=== PATIENT | male | born 1990 | race Caucasian/White ===

== ENCOUNTER 2023-06-02 09:48 | Inpatient (IN) ==
--- OUTSIDE RECORDS SUMMARY | 2023-06-02 09:52 | External Medical Summary | Summary of Care ---
Author Name Unknown Organization [facility] Address [address] [facility] [address] Phone [phone] Care Team Providers Care Armature Bander Name Role Phone Therese Hathaway MD Primary Care Provider [phone] Reason for Visit * Reason Onset Date Comments Appointment 04/25/2023 Encounter Details Date Type Department Care Team (Late st Contact Info) Description 04/25/2023 [facility]phone [facility] [address] [place] [address] Ksenia Ordaz PA-C [address] [place] [id number] Appointment Allergies Active Allergy Reactions Criticality Noted Date Comments Penicillins Rash High 09/12/2022 documented as of this encounter (statuses as of 04/25/2023) Medications Medication Sig Dispensed Refills Start Date End Date Status Sertraline HCl 50 MG Oral Tablet (Zoloft) Take 1 Tablet by mouth in the morning. 90 Tablet 1 01/13/2023 Active Azithromycin 250 MG Oral Tablet (Zithromax Z-Frankie) Take two tablets by mouth on first day, then 1 tablet daily until gone 6 Tablet 0 03/17/2023 Active Additional Information Patient not taking.Reported on 03/31/2023 Ondansetron HCl 4 MG Oral Tablet Take 1 Tablet by mouth every 6 hours as needed for Nausea. 30 Tablet 0 03/31/2023 Active Omeprazole 20 MG Oral Capsule Delayed Release (PriLOSEC) Take 1 Capsule by mouth in the morning. 1 hour before the first meal of the day. 90 Capsule 3 03/31/2023 Active Additional Information Patient not taking.Reported on 04/14/2023 Tamsulosin HCl 0.4 MG Oral Capsule (Flomax) Take 2 Capsules by mouth in the morning. 28 Capsule 1 04/10/2023 Active documented as of this encounter (statuses as of 04/25/2023) Active Problems Problem Noted Date Diagnosed Date History of alcohol abuse 09/12/2022 Depression with anxiety 09/12/2022 Loss of weight 09/12/2022 documented as of this encounter (statuses as of 04/25/2023) Social History Tobacco Use Types Packs/Day Years Used Date Smoking Tobacco: Former Cigarettes Smokeless Tobacco: Never Hunger Vital Sign Answer Date Recorded Within the past 12 months, y ou worried that your food would run out before you got the money to buy more. Never true 01/14/20 23 Within the past 12 months, t he food you bought just didn't last and you didn't have money to get more. Never true 01/13/2023 Sex and Gender Information Value Date Recorded Sex Assigned at Male 01/13/2023 1:17 PM EDT Gender Identity Male 01/13/2023 1:17 PM EDT Sexual Orientation Bisexual 01/13/2023 1: 17 PM EDT Job Start Date Occupation Industry Not on file Not on file Not on file documented as of this encounter Miscellaneous Notes * Telephone Encounter - Yudi Lane OSA - 04/25/2023 1:02 PM EST Spoke with patient and scheduled video appt to review CT BOB Butler 04/25/2023 1:02 PM * Telephone Encounter - Alisha Plata OSA - 04/25/2023 12:53 PM EST Please call pt and make an appt for a telehealth appt. I tried and there is nothing. Please and thank you. Alisha documented in this encounter Plan of Treatment Upcoming Encounters Date Type Department Care Team (Late st Contact Info) Description 05/06/2023 9:30 AM EST [facility] Vaz[facility] [address] [place] [address] [address] [place] [address] Ksenia Ordaz PA-C [address] [place] [address] 06/17/2023 8:00 AM EST Telemedicine Nutrition, Amalia Lerner [address] [place] [address] [place], KATTY [address] [place] [address] Health Maintenance Due Date Last Done Comments Hepatitis B (1 of 3 - 3-dose series) 1991 COVID-19 Vaccine (#1) 01/20/1992 Depression Screening 2003 HIV Screening 2006 Hepatitis C Screening 2009 DTaP,Tdap,and Td Vaccines (1 - Tdap) 2010 Influenza Vaccine (FLU shot) (#1) 2023 GARDASIL-HPV IMMUNIZATION SERIES Aged Out No longer eligible based on patient's age to complete this topic MENINGOCOCCAL (MENACTRA/MENVEO) Aged Out No longer eligible based on patient's age to complete this topic Pneumococcal Vaccine: Pediat rics (0 to 5 Years) and At-Risk Patients (6 to 64 Years) Aged Out No longer eligible b ased on patient's age to complete this topic documented as of this encounter Medical Devices Not on filedocumented as of this encounter Care Teams Armature Bander Relationship Specialty Start Date End Date Therese Hathaway MD [address] [facility] [address] PCP - General Internal Medicine 09/12/22 documented as of this encounter
--- OUTSIDE RECORDS SUMMARY | 2023-06-02 09:52 | External Medical Summary | Summary of Care ---
Author Name Unknown Organization [facility] Address [address] [place] [address] Phone [phone] Care Team Providers Care Transporter Driver Name Role Phone Therese Hathaway MD Primary Care Provider [phone] Reason for Referral * Precert (Within 10 days (routine)) - Pending Review Specialty Diagnoses / Procedures Referred By Nikki zaidi Referred To Contact Radiology Diagnoses Acute right flank pain Calculus of kidney Procedures CT ABD/PELVIS WO IV/ORAL CONTRAST Ksenia Ordaz PA-C [address] [place] [id number] Referral ID Status Reason Start Date Expiration Date V isits Requested Visits Authorized [id number] Pending Review 04/14/2023 999 999 Reason for Visit * Reason Comments NEW PATIENT Kidney stone * Evaluate & Treat - Unlimited Visits (Within 10 days (routine)) - Authorized Specialty Diagnoses / Procedures Referred By Nikki zaidi Referred To Contact Urology Diagnoses Kidney stones Therese Hathaway MD [address] [place] [phone] Referral ID Status Reason Start Date Expiration Date Visits Requested Visits Authorized [id number] Authorized Specialty Services Required 04/10/2023 04/10/2024 999 999 Encounter Details Date Type Department Care Team (Late st Contact Info) Description 04/14/2023 2:00 PM EST Office Visit [facility] [address] [place] [address] Ksenia Ordaz PA-C [address] [place] [address] Acute right flank pain*; Calculus of kidney Allergies Active Allergy Reactions Criticality Noted Date Comments Penicillins Rash High 09/12/2022 documented as of this encounter (statuses as of 04/14/2023) Medications Medication Sig Dispensed Refills Start Date [...] as of this encounter (statuses as of 04/14/2023) Active Problems Problem Noted Date Diagnosed Date History of alcohol abuse 09/12/2022 Depression with anxiety 09/12/2022 Loss of weight 09/12/2022 documented as of this encounter (statuses as of 04/14/2023) Social History Tobacco Use Types Packs/Day Years Used Date Smoking Tobacco: Former Cigarettes Smokeless Tobacco: Never Tobacco Cessation:Counseling Given: Not Answered Hunger Vital Sign Answer Date Recorded Within [...] on file documented as of this encounter Last Filed Vital Signs Vital Sign Reading Time Taken Comments Blood Pressure 113/74 04/14/2023 1:44 PM EST Pulse 85 04/14/2023 1:44 PM EST Temperature 36.6 C (97.8 F) 04/14/2023 1:44 PM ES T Respiratory Rate - - Oxygen Saturation 97% 04/14/2023 1:44 PM EST Inhaled Oxygen Concentration - - Weight 54.9 kg (121 lb 1.6 oz) 04/14/2023 1:44 P M EST Height 176.5 cm (5' 9.49") 04/14/2023 1:44 PM ES T Body Mass Index 17.63 04/14/2023 1:44 PM EST documented in this encounter Progress Notes * Ksenia Ordaz PA-C - 04/14/2023 2:07 PM EST I have personally reviewed the pt's records. PCP: THERESE HATHAWAY [address] [place] [id number] HPI: John Whiting MR# [id number] is a 32 year old male presents in consultation from Therese Hathaway MDfor evaluation of kidney stones. He is here by himself He does not have a h/o stones. He is having pain in his upper back with nausea. It is on the right near his spine. It comes and goes but is pretty constant lately. It has been the last 6 months. He had a limited right US that showed stones in his right kidney. No hydro. He drinks 50 oz of water a day H/o alcohol abuse Review of patient's allergies indicates: Allergen Reactions Penicillins Rash Current Outpatient Medications Medication Sig Dispense Refill Sertraline HCl 50 MG Oral Tablet (Zoloft) Take 1 Tablet by mouth in the morning. 90 Tablet 1 Ondansetron HCl 4 MG Oral Tablet Take 1 Tablet by mouth every 6 hours as needed for Nausea. 30 Tablet 0 Tamsulosin HCl 0.4 MG Oral Capsule (Flomax) Take 2 Capsules by mouth in the morning. 28 Capsule 1 Azithromycin 250 MG Oral Tablet (Zithromax Z-Frankie) Take two tablets by mouth on first day, then 1 tablet daily until gone (Patient not taking: Reported on 03/31/2023) 6 Tablet 0 Omeprazole 20 MG Oral Capsule Delayed Release (PriLOSEC) Take 1 Capsule by mouth in the morning. 1 hour before the first meal of the day. (Patient not taking: Reported on 04/14/2023) 90 Capsule 3 No current facility-administered medications for this visit. Patient Active Problem List Diagnosis Code History of alcohol abuse F10.11 Depression with anxiety F41.8 Loss of weight R63.4 No past medical history on file. No past surgical history on file. No family status information on file. Social History Socioeconomic History Marital status: Single Spouse name: Not on file Number of children: Not on file Years of education: Not on file Highest education level: Not on file Occupational History Not on file Tobacco Use Smoking status: Former Types: Cigarettes Smokeless tobacco: Never Vaping Use Vaping Use: Every day Substance and Sexual Activity Alcohol use: Not on file Drug use: Not on file Sexual activity: Not on file Other Topics Concern Not on file Social History Narrative Not on file Social Determinants of Health Financial Resource Strain: Not on file Food Insecurity: No Food Insecurity (01/13/2023) Hunger Vital Sign Worried About Running Out of Food in the Last Year: Never true Ran Out of Food in the Last Year: Never true Transportation Needs: Not on file Physical Activity: Not on file Stress: Not on file Social Connections: Not on file Intimate Partner Violence: Not on file Housing Stability: Not on file Review of Systems: CONSTITUTIONAL: Denies change weight, chills. Losing weight SKIN: Denies rash NEURO: Denies headache EENT: Denies visual changes CARDIAC: Denies chest pain RESPIRATORY: Denies SOB GI: Denies nausea, vomiting, diarrhea, constipation : see above ENDOCRINE: Denies diabetes mellitus MUSCULOSKELETAL: Denies arthritis HEMATOLOGIC: Denies prior h/o DVT PSYCHOLOGICAL: +h/o depression and anxiety ALL OTHER SYSTEMS NEGATIVE PHYSICAL EXAM: BP 113/74 | Pulse 85 | Temp 36.6 C (97.8 F) | Ht 1.765 m (5' 9.49") | Wt 54.9 kg (121 lb 1.6 oz) | SpO2 97% | BMI 17.63 kg/m | BSA 1.64 m General: alert,healthy,no distress,well developed,well nourished,cooperative Respiratory: unlabored breathing Skin: warm and dry Neuro: Reflexes normal and symmetric,Sensory/Motor grossly normal GI: Abdomen soft, non-tender Muskuloskeletal: No Costovertebral Angle Tenderness RADIOLOGY: 04/02/23 IMPRESSION: Right nephrolithiasis. Impression: John Whiting is a 32 year old male with: 1. Right flank pain and nausea intermittently. No h/o stones. Limited US showed right renal stones.No hydro Plan: 1. NCCT 2. Discussed importance of increased daily water intake, a low salt diet(< 2000mg), and 1/4th cup lemon/confederated goshute juice daily 3. Recommend he decrease his intake of caffeine and spicy foods 4. RTC after NCCT Ksenia Ordaz PA-C 2:07 PM 04/14/2023 documented in this encounter Plan of Treatment Upcoming Encounters Date Type Department Care Team (Late st Contact Info) Description 04/18/2023 7:15 AM EST Imaging Radiology [facility] [address] [facility] [place] [address] 06/17/2023 8:00 AM EST Telemedicine Nutrition, [facility] [address] [facility] [place] [address] [place] RDN [address] [facility] [place] [address] Scheduled Orders Name Type Priority Associated Diagnoses Orde r Schedule CT ABD/PELVIS WO IV/ORAL CONTRAST Medical Imaging Routine Acute right flank pain Calculus of kidney Expected: 04/14/2023, Expires: 05/14/2024 Health Maintenance Due Date Last Done Comments [...] Not on filedocumented as of this encounter Visit Diagnoses Diagnosis Acute right flank pain- Primary Abdominal pain, unspecified site Calculus of kidney documented in this encounter Care Teams Transporter Driver Relationship Specialty Start Date End Date Therese Hathaway MD [address] [place] [address] PCP - General Internal Medicine 09/12/22 documented as of this encounter
--- OUTSIDE RECORDS SUMMARY | 2023-06-02 09:52 | External Medical Summary | Summary of Care ---
Author Name Unknown Organization [facility] Address [address] [place] [address] Phone [phone] Care Team Providers Care Storeroom Keeper Name Role Phone Therese Hathaway MD Primary Care Provider [phone] Reason for Visit * Reason Onset Date Comments Medication Refill 05/09/2023 Encounter Details Date Type Department Care Team (Late st Contact Info) Description 05/09/2023 Refill [facility] [address] [place] [address] Therese Hathaway MD [address] [place] [address] Allergies Active Allergy Reactions Criticality Noted Date Comments Penicillins Rash High 09/12/2022 documented as of this encounter (statuses as of 05/10/2023) Medications Medication Sig Dispensed Refills Start Date End Date Status Azithromycin 250 MG Oral Tablet (Zithromax Z-Frankie) [...] the morning. 28 Capsule 1 04/10/2023 Active Sertraline HCl 50 MG Oral Tablet (Zoloft) Take 1 Tablet by mouth in the morning. 90 Tablet 0 05/10/2023 Active Sertraline HCl 50 MG Oral Tablet (Zoloft) Take 1 Tablet by mouth in the morning. 90 Tablet 1 01/13/2023 3 Discontinue d(Refill) documented as of this encounter (statuses as of 05/10/2023) Active Problems Problem Noted Date Diagnosed Date History of alcohol abuse 09/12/2022 Depression with anxiety 09/12/2022 Loss of weight 09/12/2022 documented as of this encounter (statuses as of 05/10/2023) Social History Tobacco Use Types Packs/Day Years [...] encounter Miscellaneous Notes * Telephone Encounter - Carly Ordonez RPh - 05/10/2023 8:11 AM ESTSigned Prescriptions: Disp Refills Sertraline HCl 50 MG Oral Tablet (Zoloft) 90 Tab*0 Sig: Take 1 Tablet by mouth in the morning.Authorizing Provider: Corbin HATHAWAY User: CARLY ORDONEZ * Telephone Encounter - Carly Ordonez RPh - 05/10/2023 8:11 AM EST Rerouted remaining refills to new pharmacy as requested. Thanks, Carly Ordonez PharmD Clinical Pharmacist [facility] ([facility]) [phone] 05/10/2023, 8:11 AM * Telephone Encounter - Madina Hardy PHARM Tech - 05/09/2023 2:16 PM EST Please reroute Rx to [id number] Pending Prescriptions: Disp Refills Sertraline HCl 50 MG Oral Tablet (Zoloft) 90 Tab*0 Sig: Take 1 Tablet by mouth in the morning. Last Visit: 03/31/2023 (in office), 01/13/2023 (telemedicine) Visit date not found If no future appointments scheduled, and last appointment is greater than a year ago, please schedule patient for a follow-up appointment Last date the medication was ordered: 01/13/2023 Patient Phone Numbers Labs: Lab Results Component Value Date/Time CREAT 0.9 03/31/2023 04:50 PM POTASSIUM 3.6 03/31/2023 04:50 PM TSH 1.05 03/31/2023 04:50 PM LDLCALC 90 03/31/2023 04:50 PM ALT 31 03/31/2023 04:50 PM documented in this encounter Plan of Treatment Upcoming Encounters Date Type Department Care Team (Late st Contact Info) Description 05/12/2023 8:40 AM EST Immunization Ancillary Department, [address] [address] [place] [address] [place] [address] 06/17/2023 8:00 AM EST Telemedicine Nutrition, Amalia Lerner [address] [place] [address] [place], RDN [address] [place] [address] Health Maintenance Due Date Last Done Comments [...] filedocumented as of this encounter Care Teams Storeroom Keeper Relationship Specialty Start Date End Date Therese Hathaway MD [address] [facility] [address] PCP - General Internal Medicine 09/12/22 documented as of this encounter
--- OUTSIDE RECORDS SUMMARY | 2023-06-02 09:52 | External Medical Summary | Summary of Care ---
Author Name Unknown Organization [facility] Address [address] [place] [address] Phone [phone] Care Team Providers Care Communications Equipment Supervisor Name Role Phone Therese Hathaway MD Primary Care Provider [phone] Reason for Visit * Reason Comments Outpatient Testing Encounter Details Date Type Department Care Team (Late st Contact Info) Description 03/31/2023 4:50 PM EDT Laboratory Laboratory, [facility] [address] [place] [address] [facility] [address] [place] [address] Loss of weight; History of alcohol abuse; Nausea and vomiting, unspecified vomiting type; History of gallbladder disease; Shoulder blade pain; Upper back pain Allergies Active Allergy Reactions Criticality Noted Date Comments Penicillins Rash High 09/12/2022 documented as of this encounter (statuses as of 03/31/2023) Medications Medication Sig Dispensed Refills Start Date [...] the day. 90 Capsule 3 03/31/2023 Active documented as of this encounter (statuses as of 03/31/2023) Active Problems Problem Noted Date Diagnosed Date History of alcohol abuse 09/12/2022 Depression with anxiety 09/12/2022 Loss of weight 09/12/2022 documented as of this encounter (statuses as of 03/31/2023) Social History Tobacco Use Types Packs/Day Years Used Date Smoking Tobacco: Former Cigarettes Smokeless Tobacco: Never Hunger Vital Sign Answer Date Recorded Within the past 12 months, y ou worried that your food would run out before you got the money to buy more. Never true 01/14/20 Within the past 12 months, t he [...] on file documented as of this encounter Plan of Treatment Upcoming Encounters Date Type Department Care Team (Late st Contact Info) Description 06/17/2023 8:00 AM [facility] [address] [place] [address] [place] RDN [address] [place] [address] Pending Results Name Type Priority Associated Diagnoses Date /Time TSH WITH FREE T4 IF INDICATED Lab Routine Loss of weight History of alcohol abuse 03/31/2023 4:50 PM EDT CBC WITH WBC DIFFERENTIAL Lab Routine Loss of weight History of alcohol abuse 03/31/2023 4:50 PM EDT COMPREHENSIVE METABOLIC PANEL Lab Routine Loss of weight History of alcohol abuse 03/31/2023 4:50 PM EDT LIPID PANEL WITH DIRECT LDL IF TG IS HIGH Lab Routine Loss of weight History of alcohol abuse 03/31/2023 4:50 PM EDT CBC Lab Routine Loss of weight History of alcohol abuse 03/31/2023 4:50 PM EDT DIFFERENTIAL, AUTOMATED Lab Routine Loss of weight History of alcohol abuse 03/31/2023 4:50 PM EDT Health Maintenance Due Date Last Done Comments [...] as of this encounter Visit Diagnoses Diagnosis Loss of weight History of alcohol abuse Nondependent alcohol abuse, in remission Nausea and vomiting, unspecified vomiting type History of gallbladder disease Shoulder blade pain Disorder of bone and cartilage, unspecified Upper back pain documented in this encounter Additional Health Concerns Infection Onset Date Last Indicated Resolved Time Enterovirus (resp)/Rhinovirus 03/17/2023 03/17/2023 documented as of this encounter Care Teams Communications Equipment Supervisor Relationship Specialty Start Date End Date Therese Hathaway MD [address] [place] [address] PCP - General Internal Medicine 09/12/22 documented as of this encounter
--- OUTSIDE RECORDS SUMMARY | 2023-06-02 09:52 | External Medical Summary | Summary of Care ---
Author Name Unknown Organization [facility] Address [address] [place] [address] Phone [phone] Care Team Providers Care Assistant Editor Name Role Phone Therese Hathaway MD Primary Care Provider [phone] Reason for Visit * Reason Onset Date Comments Medication Refill 05/09/2023 Encounter Details Date Type Department Care Team (Late st Contact Info) Description 05/09/2023 Refill [facility] [address] [place] [address] Therese Hathaway MD [address] [place] [address] Allergies Active Allergy Reactions Criticality Noted Date Comments Penicillins Rash High 09/12/2022 documented as of this encounter (statuses as of 05/12/2023) Medications Medication Sig Dispensed Refills Start Date End Date Status Azithromycin 250 MG Oral Tablet (Zithromax Z-Frankie) Take two tablets by mouth on first day, then 1 tablet daily until gone 6 Tablet 0 03/17/2023 Active Additional Information Patient not taking.Reported on 03/31/2023 Omeprazole 20 MG Oral Capsule Delayed Release (PriLOSEC) Take 1 Capsule by mouth in the morning. 1 hour before the first meal of the day. 90 Capsule 3 03/31/2023 Active Additional Information Patient not taking.Reported on 04/14/2023 Tamsulosin HCl 0.4 MG Oral Capsule (Flomax) Take 2 Capsules by mouth in the morning. 28 Capsule 1 04/10/2023 Active Ondansetron HCl 4 MG Oral Tablet Take 1 Tablet by mouth every 6 hours as needed for Nausea. 30 Tablet 0 05/12/2023 Active Ondansetron HCl 4 MG Oral Tablet Take 1 Tablet by mouth every 6 hours as needed for Nausea. 30 Tablet 0 03/31/2023 Discontinue d(Refill) documented as of this encounter (statuses as of 05/12/2023) Active Problems Problem Noted Date Diagnosed Date History of alcohol abuse 09/12/2022 Depression with anxiety 09/12/2022 Loss of weight 09/12/2022 documented as of this encounter (statuses as of 05/12/2023) Social History Tobacco Use Types Packs/Day Years [...] encounter Miscellaneous Notes * Telephone Encounter - Therese Hathaway MD - 05/12/2023 7:58 AM ESTSigned Prescriptions: Disp Refills Ondansetron HCl 4 MG Oral Tablet 30 Tab*0 Sig: Take 1 Tablet by mouth every 6 hours as needed for Nausea. Authorizing Provider: THERESE HATHAWAY * Telephone Encounter - Zulema Lyman [facility] - 05/10/2023 9:45 AM EST Pending Prescriptions: Disp Refills Ondansetron HCl 4 MG Oral Tablet 30 Tab*0 Sig: Take 1 Tablet by mouth every 6 hours as needed for Nausea. * Telephone Encounter - Zulema Lyman [facility] - 05/10/2023 9:45 AM EST Initially prescribed on 03/31. Forwarding to provider for further evaluation. Please approve and authorize additional refills if you would like patient to continue this medication. Thank you, Zulema Lyman, PharmD. Clinical Pharmacist [facility] ([facility]) (formerly Telepharmacy) 05/10/2023, 9:45 AM * Telephone Encounter - Madina Hardy PHARM Tech - 05/09/2023 2:14 PM EST Did you pend patient's preferred pharmacy and medication before forwarding?yes Pharmacy: [id number] [facility] Pending Prescriptions: Disp Refills Ondansetron HCl 4 MG Oral Tablet 30 Tab*0 Sig: Take 1 Tablet by mouth every 6 hours as needed for Nausea. Last Visit: 03/31/2023 (in office), 01/13/2023 (telemedicine) Next Visit: Visit date not found If no future appointments scheduled, and last appointment is greater than a year ago, please schedule patient for a follow-up appointment Last date the medication was ordered: 03/31/2023 Is this request for a controlled substance?No Urine Drug Screen:No results found for this or any previous visit. Patient Phone Numbers Labs: Lab Results Component Value Date/Time CREAT 0.9 03/31/2023 04:50 PM POTASSIUM 3.6 03/31/2023 04:50 PM TSH 1.05 03/31/2023 04:50 PM LDLCALC 90 03/31/2023 04:50 PM ALT 31 03/31/2023 04:50 PM documented in this encounter Plan of Treatment Upcoming Encounters Date Type Department Care Team (Late st Contact Info) Description 05/12/2023 8:40 AM EST Immunization Ancillary Department, [place] [address] [place] [facility] [place] [address] [place] [address] [place] [facility] [place] [address] 06/17/2023 8:00 AM EST Telemedicine Nutrition, [facility] [address] [place] [address] [place], KATT[place] [address] [place] [address] Health Maintenance Due Date Last Done Comments [...] filedocumented as of this encounter Care Teams Assistant Editor Relationship Specialty Start Date End Date Therese Hathaway MD [address] [place] [facility] [place] [address] PCP - General Internal Medicine 09/12/22 documented as of this encounter
--- OUTSIDE RECORDS SUMMARY | 2023-06-02 09:52 | External Medical Summary | Summary of Care ---
Author Name Unknown Organization [facility] Address [address] [place] [address] Phone [phone] Care Team Providers Care Rn Labor Delivery Name Role Phone Therese Hathaway MD Primary Care Provider Reason for Visit * Reason Comments Acute Upper back pain/naus ea Encounter Details Date Type Department Care Team (Late st Contact Info) Description 03/31/2023 4:00 PM EDT Office Visit [facility] [address] [place] [address] Therese Hathaway MD [address] [place] [address] Nausea and vomiting, unspecified vomiting type*; History of gallbladder disease; Shoulder blade pain; Upper back pain Allergies Active Allergy Reactions Criticality Noted Date Comments Penicillins Rash High 09/12/2022 documented as of this encounter (statuses as of 04/01/2023) Medications Medication Sig Dispensed Refills Start Date [...] as of this encounter (statuses as of 04/01/2023) Active Problems Problem Noted Date Diagnosed Date History of alcohol abuse 09/12/2022 Depression with anxiety 09/12/2022 Loss of weight 09/12/2022 documented as of this encounter (statuses as of 04/01/2023) Social History Tobacco Use Types Packs/Day Years [...] Sign Reading Time Taken Comments Blood Pressure 104/60 03/31/2023 3:59 PM EDT Pulse 86 03/31/2023 3:59 PM EDT Temperature 37.1 C (98.7 F) 03/31/2023 3:59 PM ED T Respiratory Rate 20 03/31/2023 3:59 PM EDT Oxygen Saturation 99% 03/31/2023 3:59 PM EDT Inhaled Oxygen Concentration - - Weight 55.4 kg (122 lb 3.2 oz) 03/31/2023 3:59 P M EDT Height 176.5 cm (5' 9.49") 03/31/2023 3:59 PM ED T Body Mass Index 17.79 03/31/2023 3:59 PM EDT documented in this encounter Progress Notes * Therese Hathaway MD - 03/31/2023 4:13 PM EDT Images from the original note were not included. Subjective John Whiting is a 32 year old male. Chief Complaint Patient presents with Acute Upper back pain/nausea HPI: Here for acute upper back pain with nausea Denies any fever, cough, abd pain, SOB, CP, diarrhea Had vomiting once with nausea On exam on upper back /shoulder blade, he showed more nausea But no epigastric or RUQ pain Hx of gall bladder issue in the past No surgery hx No alcohol recently and denies heartburn PMH: Patient Active Problem List Diagnosis Code History of alcohol abuse F10.11 Depression with anxiety F41.8 Loss of weight R63.4 Current Outpatient Medications Medication Sig Dispense Refill Sertraline HCl 50 MG Oral Tablet (Zoloft) Take 1 Tablet by mouth in the morning. 90 Tablet 1 Ondansetron HCl 4 MG Oral Tablet Take 1 Tablet by mouth every 6 hours as needed for Nausea. 30 Tablet 0 Omeprazole 20 MG Oral Capsule Delayed Release (PriLOSEC) Take 1 Capsule by mouth in the morning. 1 hour before the first meal of the day. 90 Capsule 3 Azithromycin 250 MG Oral Tablet (Zithromax Z-Frankie) Take two tablets by mouth on first day, then 1 tablet daily until gone (Patient not taking: Reported on 03/31/2023) 6 Tablet 0 No current facility-administered medications for this visit. No past medical history on file. No past surgical history on file. Review of patient's allergies indicates: Allergen Reactions Penicillins Rash No family history on file. No family status information [...] Housing Stability: Not on file Review of Systems Constitutional: Positive for activity change and appetite change. Negative for chills, diaphoresis,fatigue, fever and unexpected weight change. HENT: Negative for postnasal drip. Eyes: Negative for visual disturbance. Respiratory: Negative for cough, chest tightness, shortness of breath and wheezing. Cardiovascular: Negative for chest pain, palpitations and leg swelling. Gastrointestinal: Positive for nausea and vomiting (once). Negative for abdominal distention, abdominal pain, blood in stool, constipation and diarrhea. Endocrine: Negative. Genitourinary: Negative for flank pain and hematuria. Musculoskeletal: Positive for back pain (upper mid back , shoulder blade). Allergic/Immunologic: Negative for food allergies. Neurological: Negative for dizziness, weakness, light-headedness and headaches. Psychiatric/Behavioral: Positive for sleep disturbance. Negative for agitation and behavioral problems. The patient is nervous/anxious. Objective BP 104/60 | Pulse 86 | Temp 37.1 C (98.7 F) (Temporal Artery) | Resp 20 | Ht 1.765 m (5' 9.49")| Wt 55.4 kg (122 lb 3.2 oz) | SpO2 99% | BMI 17.79 kg/m | BSA 1.65 m Physical Exam Constitutional: General: He is not in acute distress. Appearance: Normal appearance. He is ill-appearing. He is not toxic-appearing or diaphoretic. Abdominal: General: There is no distension. Palpations: Abdomen is soft. Tenderness: There is no abdominal tenderness. There is no right CVA tenderness, left CVA tenderness, guarding or rebound. Musculoskeletal: General: Tenderness present. Thoracic back: Tenderness present. No swelling, deformity, spasms or bony tenderness. Normal range of motion. No scoliosis. Back: Neurological: Mental Status: He is alert. ASSESSMENT/PLAN: Nausea and vomiting, unspecified vomiting type (Primary) - XR CHEST 2 VIEWS - XR T SPINE AP AND LATERAL - CBC WITH WBC DIFFERENTIAL; Future; Expected date: 03/31/2023 - COMPREHENSIVE METABOLIC PANEL; Future; Expected date: 03/31/2023 - US ABDOMEN LIMITED; Future; Expected date: 03/31/2023 History of gallbladder disease - CBC WITH WBC DIFFERENTIAL; Future; Expected date: 03/31/2023 - COMPREHENSIVE METABOLIC PANEL; Future; Expected date: 03/31/2023 - US ABDOMEN LIMITED; Future; Expected date: 03/31/2023 Shoulder blade pain - XR CHEST 2 VIEWS - XR T SPINE AP AND LATERAL - CBC WITH WBC DIFFERENTIAL; Future; Expected date: 03/31/2023 - COMPREHENSIVE METABOLIC PANEL; Future; Expected date: 03/31/2023 - US ABDOMEN LIMITED; Future; Expected date: 03/31/2023 Upper back pain - XR CHEST 2 VIEWS - XR T SPINE AP AND LATERAL - CBC WITH WBC DIFFERENTIAL; Future; Expected date: 03/31/2023 - COMPREHENSIVE METABOLIC PANEL; Future; Expected date: 03/31/2023 Other orders - Ondansetron HCl 4 MG Oral Tablet; Take 1 Tablet by mouth every 6 hours as needed for Nausea. - Omeprazole 20 MG Oral Capsule Delayed Release (PriLOSEC); Take 1 Capsule by mouth in the morning.1 hour before the first meal of the day. Meds prn And f/u blood tests, xray, US If gets worse, go to ER Therese Hathaawy MD documented in this encounter Nursing Notes * Celina Marquez LPN - 03/31/2023 3:58 PM EDT The patient has been properly identified by confirmation of name and date of . Chief Complaint Patient presents with Acute Upper back pain/nausea documented in this encounter Plan of Treatment Upcoming Encounters Date Type Department Care Team (Late st Contact Info) Description 04/02/2023 7:30 AM EDT Imaging Radiology [facility] [address] [address] 06/17/2023 8:00 AM EST Telemedicine Nutrition, [facility] [address] [place] [id number] Socorro [place]wood RDN [address] [place] [phone] Pending Results Name Type Priority Associated Diagnoses Date /Time XR T SPINE AP AND LATERAL Medical Imaging Routine Nausea and vomiting, unspecified vomiting type Shoulder blade pain Upper back pain 03/31/2023 5:00 PM EDT Scheduled Orders Name Type Priority Associated Diagnoses Orde r Schedule US ABDOMEN LIMITED Medical Imaging Routine Nausea and vomiting, unspecified vomiting type History of gallbladder disease Shoulder blade pain Expected: 03/31/2023, Expires: 05/01/2024 Health Maintenance Due Date Last Done Comments [...] Not on filedocumented as of this encounter Procedures Procedure Name Priority Date/Time Associated Diagnosis Comments XR CHEST 2 VIEWS Routine 03/31/2023 5:00 PM EDT Nausea and vomiting, unspecified vomiting type Shoulder blade pain Upper back pain documented in this encounter Results * XR CHEST 2 VIEWS (03/31/2023 5:00 PM EDT) Anatomical Region Laterality Modality Chest Computed Radiogr aphy 03/31/2023 8:07 PM EDT Impressions 03/31/2023 8:05 PM EDT IMPRESSION No active disease. Narrative 03/31/2023 8:05 PM EDT EXAM XR CHEST 2 VIEWS - 03/31/2023 5:00 pm HISTORY "mid back pain, nausea" TECHNIQUE Frontal and lateral views of the chest were obtained. COMPARISON None. FINDINGS The lungs are clear. There is no pleural effusion or pneumothorax. The cardiomediastinal silhouette is within normal limits. Procedure Note Reji Chavis MD - 03/31/2023 EXAM XR CHEST 2 VIEWS - 03/31/2023 5:00 pm HISTORY "mid back pain, nausea" TECHNIQUE Frontal and lateral views of the chest were obtained. COMPARISON None. FINDINGS The lungs are clear. There is no pleural effusion or pneumothorax. Thecardiomediastinal silhouette is within normal limits. IMPRESSION IMPRESSION No active disease. Therese Hatahway MD RADIOLOGY (RAD GENER AL) documented in this encounter Visit Diagnoses Diagnosis Nausea and vomiting, unspecified vomiting type- Primary History of gallbladder disease Shoulder blade pain Disorder of bone and cartilage, unspecified Upper back pain documented in this encounter Additional Health Concerns Infection Onset Date Last Indicated Resolved Time Enterovirus (resp)/Rhinovirus 03/17/2023 03/17/2023 documented as of this encounter Care Teams Rn Labor Delivery Relationship Specialty Start Date End Date Therese Hathaway MD [address] [place] [address] PCP - General Internal Medicine 09/12/22 documented as of this encounter
--- OUTSIDE RECORDS SUMMARY | 2023-06-02 09:52 | External Medical Summary | Summary of Care ---
Author Name Unknown Organization [facility] [address] [facility] [address] Phone [phone] Care Team Providers Care Client Development Consultant Name Role Phone Therese Hathaway MD Primary Care Provider [phone] Reason for Visit * Reason Onset Date Comments Appointment 04/25/2023 Encounter Details Date Type Department Care Team (Late st Contact Info) Description 04/25/2023 [facility]phone [facility] [address] [place] [address] Ksenia Ordaz PA-C [address] [place] [phone] Appointment Allergies Active Allergy Reactions Criticality Noted [...] Miscellaneous Notes * Telephone Encounter - Yudi Lnae OSA - 04/25/2023 1:02 PM EST Spoke [...] AM EST [facility] Charmaine Vazquez [address] [place] [address] [address] [place] [address] Ksenia Ordaz PA-C [address] [place] [address] 06/17/2023 8:00 AM EST Telemedicine Nutrition, [facility] [address] [place] [address] [place]wood, KATTY [address] [place] [address] Health Maintenance Due Date Last Done Comments [...] filedocumented as of this encounter Care Teams Client Development Consultant Relationship Specialty Start Date End Date There[facility]athaway [facility] [address] [facility] [address] PCP - General Internal Medicine 09/12/22 documented as of this encounter
--- OUTSIDE RECORDS SUMMARY | 2023-06-02 09:53 | External Medical Summary | Summary of Care ---
Author Name Unknown Organization [facility] Address [address] [place] [address] Phone [phone] Care Team Providers Care Vocational Instructor Name Role Phone Therese Hathaway MD Primary Care Provider [phone] Encounter Details Date Type Department Care Team Description 01/13/2023 Telemedicine [facility] [address] [place] [address] Therese Hathaway MD [address] [place] [address] Depression with anxiety*; History of alcohol abuse; Loss of weight Allergies Active Allergy Reactions Severity Noted Date Comments Penicillins Rash High 09/12/2022 documented as of this encounter (statuses as of 01/13/2023) Medications Medication Sig Dispensed Refills Start Date End Date Status Sertraline HCl 50 MG Oral Tablet (Zoloft) Take 1 Tablet by mouth in the morning. 90 Tablet 1 01/13/2023 Active Sertraline HCl 25 MG Oral Tablet (Zoloft) Take 1 Tablet by mouth in the morning. 30 Tablet 11 09/12/2022 01/13/2023 Discontinued documented as of this encounter (statuses as of 01/13/2023) Active Problems Problem Noted Date History of alcohol abuse 09/12/2022 Depression with anxiety 09/12/2022 Loss of weight 09/12/2022 documented as of this encounter (statuses as of 01/13/2023) Social History Tobacco Use Types Packs/Day Years Used Date Smoking Tobacco: Never Assessed Food Insecurity Answer Date Recorded Within the past 12 months, y ou worried that your food would run out before you got money to buy more. Never true 01/13/2023 Within the past 12 months, t he food you bought just didn't last and you didn't have money to get more. Never true 01/13/2023 Sex Assigned at Date Recorded Male 01/13/2023 1:17 PM E DT Job Start Date Occupation Industry Not on file Not on file Not on file documented as of this encounter Progress Notes * Therese Hathaway MD - 01/13/2023 1:28 PM EDT Subjective John Whiting is a 32 year old male. No chief complaint on file. HPI: Patient location: HOME. I was in a hospital or clinic location. After connecting through [employer],patient was verified with two unique identifiers. 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 Methods to assure confidentiality were taken. Patient acknowledged consent and understanding of pr ivacy and security of the Telemedicine visit. The patient agreed to participate. Her for routine check up weight 128 lb currently Wants to gain weight more but not able to yet Hx of alcohol abuse - f/u AA meeting Depression anxiety , taking zoloft which is helping Still has depressed mood , comes and goes Would like to adjust dose Started seeing counselor every week which is helping too PMH: Patient Active Problem List Diagnosis Code History of alcohol abuse F10.11 Depression with anxiety F41.8 Loss of weight R63.4 Current Outpatient Medications Medication Sig Dispense Refill Sertraline HCl 50 MG Oral Tablet (Zoloft) Take 1 Tablet by mouth in the morning. 90 Tablet 1 No current facility-administered medications for this visit. [...] Not on file Tobacco Use Smoking status: Not on file Smokeless tobacco: Not on file Substance and Sexual Activity Alcohol use: Not on file Drug use: Not on file Sexual activity: Not on file Other Topics Concern Not on file Social History Narrative Not on file Social Determinants of Health Financial Resource Strain: Not on file Food Insecurity: No Food Insecurity Worried About Running Out of Food in the Last Year: Never true Ran Out of Food in the Last Year: Never true Transportation Needs: Not on file Physical Activity: Not on file Stress: Not on file Social Connections: Not on file Intimate Partner Violence: Not on file Housing Stability: Not on file Review of Systems Constitutional: Positive for fatigue. Negative for activity change, appetite change, chills, diaphoresis, fever and unexpected weight change (weight up and down ). Respiratory: Negative for cough, chest tightness, shortness of breath and wheezing. Cardiovascular: Negative for chest pain, palpitations and leg swelling. Gastrointestinal: Negative for abdominal distention, abdominal pain, constipation, diarrhea, nauseaand vomiting. Endocrine: Negative. Neurological: Positive for headaches. Negative for dizziness, tremors, weakness, light-headedness and numbness. Psychiatric/Behavioral: Positive for dysphoric mood and sleep disturbance. Negative for agitation and behavioral problems. The patient is nervous/anxious. Objective There were no vitals taken for this visit. Physical Exam Constitutional: General: He is not in acute distress. Appearance: Normal appearance. He is not ill-appearing, toxic-appearing or diaphoretic. HENT: Head: Normocephalic and atraumatic. Nose: Nose normal. Eyes: Extraocular Movements: Extraocular movements intact. Conjunctiva/sclera: Conjunctivae normal. Pupils: Pupils are equal, round, and reactive to light. Neurological: General: No focal deficit present. Mental Status: He is alert and oriented to person, place, and time. Psychiatric: Behavior: Behavior normal. Comments: Anxiety depression ASSESSMENT/PLAN: Depression with anxiety (Primary) History of alcohol abuse Loss of weight Other orders - Sertraline HCl 50 MG Oral Tablet (Zoloft); Take 1 Tablet by mouth in the morning. Follow Up: Return in about 6 months (around 07/16/2023) for Clinic Visit, Video to Clinic. | For: Clinic Visit, Video to Clinic--> Increase zoloft 50 mg F/u with counselor F/u with nutrition Therese Hathaway MD documented in this encounter Plan of Treatment Upcoming Encounters Date Type Specialty Care Team Description 02/11/2023 Telemedicine Nutrition Services Presley [place]itten, RDN [address] [place] [id number] Health Maintenance Due Date Last Done Comments Hepatitis B (1 of 3 - 3-dose series) 1991 COVID-19 Vaccine (#1) 01/20/1992 Depression Screening, Annual for Pts 12 and Over 2003 HIV Screening 2006 Hepatitis C Screening [...] as of this encounter Visit Diagnoses Diagnosis Depression with anxiety- Primary Dysthymic disorder History of alcohol abuse Nondependent alcohol abuse, in remission Loss of weight documented in this encounter Care Teams Vocational Instructor Relationship Specialty Start Date End Date Therese Hathaway MD [address] [place] [facility] [place] [address] PCP - General Internal Medicine 09/12/22 documented as of this encounter"
--- OUTSIDE RECORDS SUMMARY | 2023-06-02 09:53 | External Medical Summary | Summary of Care ---
Author Name Unknown Organization [facility] Address [address] [facility] [place] [address] Phone [phone] Care Team Providers Care Adviser Sales Name Role Phone Therese Hathaway MD Primary Care Provider [phone] Reason for Visit * Reason Comments Medical Nutrition Therapy Follow Up Encounter Details Date Type Department Care Team Description 02/11/2023 Telemedicine Nutrition, [facility] [address] [place] [address] Socorro Sherwood RDN [address] [place] [id number] Loss of weight*; BMI less than 19,adult; History of alcohol abuse Allergies Active Allergy Reactions Severity Noted Date Comments Penicillins Rash High 09/12/2022 documented as of this encounter (statuses as of 02/11/2023) Medications Medication Sig Dispensed Refills Start Date End Date Status Sertraline HCl 50 MG Oral Tablet (Zoloft) Take 1 Tablet by mouth in the morning. 90 Tablet 1 01/13/2023 Active documented as of this encounter (statuses as of 02/11/2023) Active Problems Problem Noted Date History of alcohol abuse 09/12/2022 Depression with anxiety 09/12/2022 Loss of weight 09/12/2022 documented as of this encounter (statuses as of 02/11/2023) Social History Tobacco Use Types Packs/Day Years [...] Sign Reading Time Taken Comments Blood Pressure - - Pulse - - Temperature - - Respiratory Rate - - Oxygen Saturation - - Inhaled Oxygen Concentration - - Weight 59 kg (130 lb) 02/11/2023 8:08 AM EDT est imated Height 176.5 cm (5' 9.49") 02/11/2023 8:08 AM ED T Body Mass Index 18.93 02/11/2023 8:08 AM EDT documented in this encounter Patient Instructions * Patient Instructions* Socorro Sherwood RDN - 02/11/2023 8:33 AM EDT Patient will include a high-protein food source at breakfast. Patient will include a substantial meal at dinner, and a light evening snack in present meal regimen. documented in this encounter Progress Notes * Socorro Sherwood RDN - 02/11/2023 8:08 AM EDT NUTRITION FOLLOW-UP NOTE - OUTPATIENT [facility] Name: John Whiting [facility]: 02/11[facility] Time: 8:08 AM Patient was identified by name and date. Patient location: HOME. I was not in a hospital or clinic location. After connecting through [employer], patient was verified with two unique identifiers. Patient (or authorized legal community engagement representative) was then informed that this was a Telemedicine visit and being conducted confidentially over secure lines. Methods to assure confidentiality were taken. Patient acknowledged consent and understanding of privacy and security of the Telemedicine visit. The patient agreed to participate. Reason for Nutrition Follow-up: Loss of weight, alcohol abuse NUTRITION ASSESSMENT: Client History Patient is a 32 year old male being seen for above issues. Support System: Significant other, mother Barriers to Learning: None Special Education Needs: None Physical Activity: walking daily 2 laps around the neighborhood, strength training daily for past 2weeks. He is still active at work. smoothie with Weight Dileep powder with PB or corn meal treated with mcgrath Food/Nutrition-Related History Describes typical diet history/24 hr recall Breakfast: large amount of oatmeal, PB, waffles with strawberries, blueberries and PB, whole milk or water Snacks: none Lunch: pizza or meal from [employer], lunch meat sandwich with lettuce, rey, and cheese orTaco [employer]-burritos, water Snacks: protein bars Dinner: 5:30 PM leftovers or convenience foods, frozen vegetables-cauliflower mix Snacks: 10-11 PM smoothie with Weight Dileep powder with PB or corn meal treated with mcgrath Drinks: water, 1 energy drink sometimes after a meal, 54 ounces from water Diet Recall/Food Logs Indicate: AREAS FOR IMPROVEMENT: Poor meal distribution Inadequate fruit and vegetable intake POSITIVE: Portion control Food and Nutrient Intake and other pertinent information: Patient feels his appetite has improved. He notes a suppressed childhood memory relating to eating evening meal which resurfaced recently. He notes some "laziness" recently. States he is eating more convenience foods for his evening meal. States he does have a substantial meal before going to bed at night. States he has been doing this toprevent him from being "sick" in the AM. Medications Changes/Updates: sertraline dosage increased to 50 mg Nutrition-Focused Physical Findings Deferred due to telemedicine Anthropometric Measurements Current Weight: Wt Readings from Last 1 Encounters: 02/11/23 59 kg (130 lb) Wt Readings from Last 4 Encounters: 02/11/23 59 kg (130 lb) 11/05/22 59 kg (130 lb) 09/12/22 59.1 kg (130 lb 6.4 oz) Weight Change: unknown. Patient states his weight fluctuates from 120's-134 lbs. BMI Readings from Last 1 Encounters: 02/11/23 18.93 kg/m Biochemical Data, Medical Tests, and Procedures No labs available Previous Nutrition Diagnosis: Underweight related to presumed inadequate energy intake compared to estimated needs as evidenced by Body mass index is 18.92 kg/m. Unintentional weight loss related to decreased energy intake as evidenced by weight loss of 13.3-18.8% in past 7 months per Epic review. Progress towards goals: Patient will add cheese to food at lunch meal at least 5 times a week. Partially MET-pt states he'sdoing this 2-3 times a week. Patient will include at least 4 ounces of cooked meat at evening meal. NOT MET Patient will choose an almond milk that contains at least 8 grams of protein per cup. MET CURRENT NUTRITION DIAGNOSIS Underweight related to presumed inadequate energy intake compared to estimated needs as evidenced by Body mass index is 18.93 kg/m. NUTRITION INTERVENTION: NUTRITION EDUCATION Initial/brief nutrition education NUTRITION COUNSELING Strategies Nutrition Prescription: Diet: Good Nutrition High calorie/High protein Daily Calorie Needs: [id number] Kcals Daily Protein Needs: 70 Grams protein Current Goals: Patient will include a high-protein food source at breakfast. Patient will include a substantial meal at dinner, and a light evening snack in present meal regimen. Dietitian Action: Encouraged patient to avoid excessive intake of energy drinks. 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 He admits to not eating consistent meal in the evening; states he prepares different foods for the children in his house, but prepares his own food in the evening with whatever is available. Encouraged him to eat more of a substantial meal for dinner and a director occupational snack in the evening. Encouraged him to add a high-protein food to AM meal. Recommendations to Ordering Provider: Continue current plan of nutrition care. NUTRITION MONITORING AND EVALUATION: The following will be monitored and evaluated at the next visit: Monitor weight. Monitor goals and progress. Plan: Patient scheduled to return in 4 months; KATTY encouraged participant to reach out with any questions through the My Chart portal. 30 minutes Medical Nutrition Therapy Time In: 800 (02/11/23854) Time Out: 837 (02/11/23854) [facility] documented in this encounter Plan of Treatment Upcoming Encounters Date Type Specialty Care Team Description 06/17/2023 Telemedicine Nutrition Services Socorro Sherwood, RDN [address] [place] [id number] Health Maintenance Due Date Last Done Comments [...] this encounter Visit Diagnoses Diagnosis Loss of weight- Primary BMI less than 19,adult Body Mass Index less than 19, adult History of alcohol abuse Nondependent alcohol abuse, in remission documented in this encounter Care Teams Adviser Sales Relationship Specialty Start Date End Date Therese Hathaway MD [address] [facility] [place] [address] PCP - General Internal Medicine 09/12/22 documented as of this encounter
--- OUTSIDE RECORDS SUMMARY | 2023-06-02 09:53 | External Medical Summary | Summary of Care ---
Author Name Unknown Organization [facility] Address [address] [place] [address] Phone [phone] Care Team Providers Care Proof Operator Name Role Phone Therese Hathaway MD Primary Care Provider [phone] Reason for Visit * Reason Comments Cold Symptoms Cough Encounter Details Date Type Department Care Team Description 03/17/2023 Office Visit [facility] [address] [place] [address] Therese Hathaway MD [address] [place] [address] Upper respiratory tract infection, unspecified type*; Acute cough Allergies Active Allergy Reactions Severity Noted Date Comments Penicillins Rash High 09/12/2022 documented as of this encounter (statuses as of 03/17/2023) Medications Medication Sig Dispensed Refills Start Date End Date Status Sertraline HCl 50 MG Oral Tablet (Zoloft) Take 1 Tablet by mouth in the morning. 90 Tablet 1 01/13/2023 Active Azithromycin 250 MG Oral Tablet (Zithromax Z-Frankie) Take two tablets by mouth on first day, then 1 tablet daily until gone 6 Tablet 0 03/17/2023 Active documented as of this encounter (statuses as of 03/17/2023) Active Problems Problem Noted Date History of alcohol abuse 09/12/2022 Depression with anxiety 09/12/2022 Loss of weight 09/12/2022 documented as of this encounter (statuses as of 03/17/2023) Social History Tobacco Use Types Packs/Day Years Used Date Smoking Tobacco: Former Cigarettes Smokeless Tobacco: Never Food Insecurity Answer Date Recorded Within the [...] Taken Comments Blood Pressure - - Pulse 76 03/17/2023 3:27 PM EDT Temperature 36.8 C (98.2 F) 03/17/2023 3:27 PM ED T Respiratory Rate 16 03/17/2023 3:27 PM EDT Oxygen Saturation 99% 03/17/2023 3:27 PM EDT Inhaled Oxygen Concentration - - Weight 54 kg (119 lb) 03/17/2023 3:27 PM EDT Height - - Body Mass Index 17.33 02/11/2023 8:08 AM EDT documented in this encounter Progress Notes * Therese Hathaway MD - 03/17/2023 3:51 PM EDT Juan Manuel Whiting is a 32 year old male. Chief Complaint Patient presents with Cold Symptoms Cough HPI: Cold Symptoms Associated symptoms include chest pain (burning sensation from cough B/L), congestion, coughing, headaches and rhinorrhea. Pertinent negatives include no ear pain, sinus pain, sneezing, sore throat or wheezing. Cough Associated symptoms include chest pain (burning sensation from cough B/L), headaches, myalgias (achy feeling), postnasal drip and rhinorrhea. Pertinent negatives include no chills, ear pain, fever, sore throat, shortness of breath or wheezing. There is no history of environmental allergies. Here for acute URI sx since yesterday Suddenly started cough, productive , chest tightness, B/L Had achy feeling yesterday But no fever Didn't have covid test Feels fatigue, sick feeling Denies allergy sinus problem , not a smoker but vape a lot PMH: Patient Active Problem List Diagnosis Code History of alcohol abuse F10.11 Depression with anxiety F41.8 Loss of weight R63.4 Current Outpatient Medications Medication Sig Dispense Refill Sertraline HCl 50 MG Oral Tablet (Zoloft) Take 1 Tablet by mouth in the morning. 90 Tablet 1 Azithromycin 250 MG Oral Tablet (Zithromax Z-Frankie) Take two tablets by mouth on first day, then 1 tablet daily until gone 6 Tablet 0 No current facility-administered medications [...] Systems Constitutional: Positive for activity change and fatigue. Negative for appetite change, chills, diaphoresis, fever and unexpected weight change. HENT: Positive for congestion, postnasal drip, rhinorrhea and sinus pressure. Negative for ear pain, hearing loss, sinus pain, sneezing, sore throat and tinnitus. Respiratory: Positive for cough and chest tightness. Negative for shortness of breath and wheezing. Cardiovascular: Positive for chest pain (burning sensation from cough B/L). Negative for palpitations and leg swelling. Musculoskeletal: Positive for myalgias (achy feeling). Negative for arthralgias. Allergic/Immunologic: Negative for environmental allergies. Neurological: Positive for headaches. Negative for dizziness and light-headedness. Psychiatric/Behavioral: Positive for sleep disturbance. Negative for agitation and behavioral problems. The patient is nervous/anxious. Objective Pulse 76 | Temp 36.8 C (98.2 F) (Infrared ) | Resp 16 | Wt 54 kg (119 lb) | SpO2 99% | BMI 17.33 kg/m | BSA 1.63 m Physical Exam Constitutional: General: He is not in acute distress. Appearance: Normal appearance. He is ill-appearing. He is not toxic-appearing or diaphoretic. HENT: Head: Normocephalic and atraumatic. Nose: Congestion and rhinorrhea present. Eyes: Extraocular Movements: Extraocular movements intact. Pupils: Pupils are equal, round, and reactive to light. Cardiovascular: Rate and Rhythm: Normal rate and regular rhythm. Pulses: Normal pulses. Heart sounds: Normal heart sounds. No murmur heard. Pulmonary: Effort: Pulmonary effort is normal. No respiratory distress. Breath sounds: No stridor. No wheezing, rhonchi or rales. Chest: Chest wall: No tenderness. Musculoskeletal: Right lower leg: No edema. Left lower leg: No edema. Neurological: General: No focal deficit present. Mental Status: He is alert and oriented to person, place, and time. Psychiatric: Behavior: Behavior normal. ASSESSMENT/PLAN: Upper respiratory tract infection, unspecified type (Primary) - RESPIRATORY PATHOGEN PANEL, PCR; Future; Expected date: 03/17/2023 - RETURN TO WORK OR SCHOOL Acute cough - RESPIRATORY PATHOGEN PANEL, PCR; Future; Expected date: 03/17/2023 - RETURN TO WORK OR SCHOOL Other orders - Azithromycin 250 MG Oral Tablet (Zithromax Z-Frankie); Take two tablets by mouth on first day, then 1tablet daily until gone Hydration enough No vaping If cough gets better, start zpak F/u PCR test Therese Hathaway MD documented in this encounter Nursing Notes * Demetria Brandt LPN - 03/17/2023 3:28 PM EDT The patient has been properly identified by confirmation of name and date of .. Chief Complaint Patient presents with Cold Symptoms Cough Symptoms began yesterday morning. Cough is productive at times. Denies fever. documented in this encounter Plan of Treatment Upcoming Encounters Date Type Specialty Care Team Description 06/17/2023 Telemedicine Nutrition Services Sherwood, Socorro Pooja, RDN [address] [place] [id number] Pending Results Name Type Priority Associated Diagnoses Date /Time RESPIRATORY PATHOGEN PANEL, PCR Lab Routine Upper respiratory tract infection, unspecified type Acute cough 03/17/2023 4:08 PM EDT Scheduled Orders Name Type Priority Associated Diagnoses Orde r Schedule RESPIRATORY PATHOGEN PANEL, PCR Lab Routine Upper respiratory tract infection, unspecified type Acute cough Expected: 03/17/2023 (Approximate), Expires: 03/16/2024 Health Maintenance Due Date Last Done Comments [...] as of this encounter Visit Diagnoses Diagnosis Upper respiratory tract infection, unspecified type- Primary Acute cough documented in this encounter Additional Health Concerns Infection Onset Date Last Indicated Resolved Time Respiratory Rule-Out 03/17/2023 03/17/2023 documented as of this encounter Care Teams Proof Operator Relationship Specialty Start Date End Date Therese Hathaway MD [address] [place] [address] PCP - General Internal Medicine 09/12/22 documented as of this encounter"
--- OUTSIDE RECORDS SUMMARY | 2023-06-02 09:53 | External Medical Summary ---
Author Name Unknown Address Unknown Organization [facility] [address] [facility] [place] [address] Laboratory Report Ordering Provider Test Date Status SAPPHIRE POWELL 03/31/2023 16:50:28 Final Observation Date Value Abnormality Reference (Units ) Status Triglyceride 03/31/2023 16:50:28 59 <=174 ( mg/dL) Final Triglyceride Reference Range s (mg/dL):
<150 Acceptable
150-174 Borderline high
175-499 High
>=500 Very high Cholesterol 03/31/2023 16:50:28 164 <200 (mg /dL) Final Total Cholesterol Reference Ranges (mg/dL):
<200 Desirable
200-239 Borderline high
>=240 High HDL 03/31/2023 16:50:28 62 >39 (mg/dL ) Final HDL Cholesterol Reference Ra nges (mg/dL):
>=60 High (Desirable)
<50 Low (Undesirable) For Females
<40 Low (Undesirable) For Males NON-HDL CHOLESTEROL 03/31/2023 16:50:28 102 <=159 (mg/dL) Final Non-HDL Cholesterol Referenc e Range (mg/dL):
<100 Target level for high risk ASCVD patient
<130 Optimal for general population
130-159 Near optimal for general population
160-189 Borderline High
190-219 High
>=220 Very High LDL, (calculated) 03/31/2023 16:50:28 90 <= 129 (mg/dL) Final LDL Cholesterol Reference Ra nges (mg/dL):
<70 Target level for high risk ASCVD patient
<100 Optimal for general population
100-129 Near optimal for general population
130-159 Borderline high
160-189 High
>=190 Very high Performing Location [facility] [place] [address] [facility] [address]
--- OUTSIDE RECORDS SUMMARY | 2023-06-02 09:53 | External Medical Summary | Summary of Care ---
Author Name Unknown Organization [facility] Address [address] [place] [address] Phone [phone] Care Team Providers Care Service Operator Name Role Phone Therese Hathaway MD Primary Care Provider [phone] Reason for Visit * Reason Comments Cold Symptoms Cough Encounter Details Date Type Department Care Team Description 03/17/2023 Office Visit [facility] [address] [place] [address] Therese Hathaway MD [address] [place] [address] Upper respiratory tract infection, unspecified [...] Pooja, RDN [address] [place] [address] Pending Results Name Type Priority Associated Diagnoses [...] documented as of this encounter Care Teams Service Operator Relationship Specialty Start Date End Date Therese Hathaway MD [address] [place] [address] PCP - General Internal Medicine 09/12/22 documented as of this encounter"
--- OUTSIDE RECORDS SUMMARY | 2023-06-02 09:53 | External Medical Summary ---
Author Name Unknown Address Unknown Organization K01:[facility] [place] [address] [place] [address] Laboratory Report Ordering Provider Test Date Status BENMEIRSAPPHIRE 03/31/2023 16:50:28 Final Observation Date Value Abnormality Reference (Units ) Status TSH 03/31/2023 16:50:28 1.05 0.27-4.20 (uIU/mL) Final Performing Location [facility] [address] [facility] [address]
--- OUTSIDE RECORDS SUMMARY | 2023-06-02 09:53 | External Medical Summary ---
Author Name Unknown Address Unknown Organization K[facility] [address] [facility] [place] [address] Laboratory Report Ordering Provider Test Date Status SAPPHIRE POWELL 03/31/2023 16:50:28 Final Observation Date Value Abnormality Reference (Units ) Status BUN 03/31/2023 16:50:28 11 6-20 (mg/dL) Final Creatinine 03/31/2023 16:50:28 0.9 0.6-1.2 (mg/dL) Final Glomerular filtration rate/1.73 sq M.predicted [Volume Rate/Area] in Serum, Plasma or Blood by Creatinine-based formula (CKD-EPI) 03/31/2023 16:50:28 >90 >=60 (mL/min) Final eGFR is calculated based on the CKD-EPI 2020 equation SODIUM 03/31/2023 16:50:28 140 135-146 (m mol/L) Final Potassium 03/31/2023 16:50:28 3.6 3.5-5.1 (m mol/L) Final Cl 03/31/2023 16:50:28 101 98-107 (mm ol/L) Final CO2 03/31/2023 16:50:28 26 22-32 (mmo l/L) Final Anion gap 03/31/2023 16:50:28 13 7-15 (mmol /L) Final Glucose 03/31/2023 16:50:28 98 70-120 (mg /dL) Final Albumin 03/31/2023 16:50:28 4.7 3.8-5.0 (g /dL) Final AST (Aspartate aminotransferase) 03/31/2023 16:50:28 23 10-50 (U/L) Final Alk Phos 03/31/2023 16:50:28 75 35-130 (U/ L) Final Bilirubin, Total 03/31/2023 16:50:28 0.6 <=1 .2 (mg/dL) Final Calcium 03/31/2023 16:50:28 9.7 8.4-10.2 ( mg/dL) Final Protein 03/31/2023 16:50:28 6.7 6.0-8.3 (g /dL) Final ALT (Alanine aminotransferase) 03/31/2023 16:50:28 31 10-50 (U/L) Final Performing Location [facility] [place] [address] [facility] [address]
--- OUTSIDE RECORDS SUMMARY | 2023-06-02 09:53 | External Medical Summary ---
Author Name Unknown Address Unknown Organization K01[facility] [address] [facility] [place] [address] Laboratory Report Ordering Provider Test Date Status SAPPHIRE POWELL 03/17/2023 16:08:21 Final Observation Date Value Abnormality Reference (Units ) Status Adenovirus DNA [Presence] in Nasopharynx by LYDIA with non-probe detection 03/17/2023 16:08:21 Negative Negative Final Human coronavirus 229E RNA [Presence] in Nasopharynx by LYDIA with non-probe detection 03/17/2023 16:08:21 Negative Negative Final Human coronavirus HKU1 RNA [Presence] in Nasopharynx by LYDIA with non-probe detection 03/17/2023 16:08:21 Negative Negative Final Human coronavirus NL63 RNA [Presence] in Nasopharynx by LYDIA with non-probe detection 03/17/2023 16:08:21 Negative Negative Final Human coronavirus OC43 RNA [Presence] in Nasopharynx by LYDIA with non-probe detection 03/17/2023 16:08:21 Negative Negative Final SARS-CoV-2 (COVID-19) RNA [Presence] in Nasopharynx by LYDIA with non-probe detection 03/17/2023 16:08:21 Negative Negative Final Human metapneumovirus RNA [Presence] in Nasopharynx by LYDIA with non-probe detection 03/17/2023 16:08:21 Negative Negative Final Rhinovirus+Enterovirus RNA [Presence] in Nasopharynx by LYDIA with non-probe detection 03/17/2023 16:08:21 Positive Abnormal Negative Final Rhinovirus/Enterovirus detec woody by PCR (amplified probe). Influenza virus A RNA [Prese nce] in Nasopharynx by LYDIA with non-probe detection 03/17/2023 16:08:21 Negative Negative Final Influenza virus B RNA [Prese nce] in Nasopharynx by LYDIA with non-probe detection 03/17/2023 16:08:21 Negative Negative Final Parainfluenza virus 1 RNA [P resence] in Nasopharynx by LYDIA with non-probe detection 03/17/2023 16:08:21 Negative Negative Final Parainfluenza virus 2 RNA [P resence] in Nasopharynx by LYDIA with non-probe detection 03/17/2023 16:08:21 Negative Negative Final Parainfluenza virus 3 RNA [P resence] in Nasopharynx by LYDIA with non-probe detection 03/17/2023 16:08:21 Negative Negative Final Parainfluenza virus 4 RNA [P resence] in Nasopharynx by LYDIA with non-probe detection 03/17/2023 16:08:21 Negative Negative Final Respiratory syncytial virus RNA [Presence] in Nasopharynx by LYDIA with non-probe detection 03/17/2023 16:08:21 Negative Negative F inal Bordetella pertussis.pertuss is toxin promoter region [Presence] in Nasopharynx by LYDIA with non-probe detection 03/17/2023 16:08:21 Negative Negative Final Chlamydophila pneumoniae DNA [Presence] in Nasopharynx by LYDIA with non-probe detection 03/17/2023 16:08:21 Negative Negative Final Mycoplasma pneumoniae DNA [P resence] in Nasopharynx by LYDIA with non-probe detection 03/17/2023 16:08:21 Negative Negative Final Bordetella parapertussis IS1 001 DNA [Presence] in Nasopharynx by LYDIA with non-probe detection 03/17/2023 16:08:21 Negative Negative F inal
The primers that detect Rhinovirus may cross react with some Enterorviruses. The validation of bronchial specimens, tracheal aspirates, and throats for this assay was developed and performance characteristics determined by [employer]. The validation of alternate specimen types has not been cleared or approved by the U.S. Food and Drug Administration (FDA). It has been determined that such clearance or approval is not necessary. Performing Location [facility] [place] [facility] [address] [facility] [address] [facility] [address]
--- OUTSIDE RECORDS SUMMARY | 2023-06-02 09:53 | External Medical Summary ---
Author Name Unknown Address Unknown Organization K01:[facility] [address] [place] [address] Laboratory Report Ordering Provider Test Date Status SAPPHIRE POWELL 03/31/2023 16:50:28 Final Observation Date Value Abnormality Reference (Units ) Status SYNC LEUKOCYTES IN BLOOD BY AUTOMATED COUNT 03/31/2023 16:50:28 9.71 4.00-10.80 (K/uL) Final Segs 03/31/2023 16:50:28 60.5 40.0-75.0 (%) Final Lymphs % 03/31/2023 16:50:28 32.7 18.0-42.0 (%) Final Monos 03/31/2023 16:50:28 5.5 1.0-11.0 (%) Final Eosinophils 03/31/2023 16:50:28 0.5 0.0-6.0 (%) Final Basos 03/31/2023 16:50:28 0.5 0.0-2.0 (%) Final Immature Granulocyte, Percent 03/31/2023 16:50:28 0.3 0.0-2.0 (%) Final Absolute Segs 03/31/2023 16:50:28 5.87 1.80-7.70 (K/uL) Final Lymphs, absolute 03/31/2023 16:50:28 3.18 1.00-4.80 (K/ul) Final Monos, Abs 03/31/2023 16:50:28 0.53 0.00-1.10 (K/uL) Final Eos, Abs 03/31/2023 16:50:28 0.05 0.00-0.70 (K/uL) Final Basos, Abs 03/31/2023 16:50:28 0.05 0.00-0.20 (K/uL) Final Immature Granulocytes, Number 03/31/2023 16:50:28 0.03 0.00-0.20 (K/uL) Final Performing Location [facility] - [address] [facility] [id number]
--- OUTSIDE RECORDS SUMMARY | 2023-06-02 09:53 | External Medical Summary ---
Author Name Unknown Address Unknown Organization [id number]:[facility] [place] [address] [place] [address] Laboratory Report Ordering Provider Test Date Status SAPPHIRE POWELL 03/31/2023 16:50:28 Final Observation Date Value Abnormality Reference (Units ) Status WBC, Total 03/31/2023 16:50:28 9.71 4.00-10.80 (K/uL) Final RBC 03/31/2023 16:50:28 5.36 4.50-5.25 (M/uL) Final Hemoglobin 03/31/2023 16:50:28 15.6 14.0-16.8 (g/dL) Final HCT 03/31/2023 16:50:28 47.6 40.0-48.4 (%) Final MCV 03/31/2023 16:50:28 88.8 82.0-99.5 (fL) Final MCH 03/31/2023 16:50:28 29.1 27.0-34.0 (pg) Final MCHC 03/31/2023 16:50:28 32.8 32.0-36.0 (g/dL) Final RDW 03/31/2023 16:50:28 11.9 11.5-15.5 (%) Final Platelets 03/31/2023 16:50:28 400 140-400 (K/uL) Final MPV 03/31/2023 16:50:28 9.4 6.6-11.1 (fL) Final Nucleated erythrocytes/100 leukocytes [Ratio] in Blood by Automated count 03/31/2023 16:50:28 0 <=0 (/100 WBCs) Final Performing Location [facility] [place] [address] [address]
[2023-06-02 10:46] LABS: Appearance Urine Cloudy (Clear); Bacteria Urine Automated Negative (Negative); Bilirubin Urine Negative (Negative); Blood Urine Negative (Negative); Color Urine Yellow; Epithelial Cell Urine Auto 0-5 /lpf (0-5); Glucose Urine UA Negative (Negative); Ketones Urine Negative (Negative); Leukocyte Esterase Urine Negative (Negative); Nitrite Urine Negative (Negative); Protein Urine Negative (Negative); RBC Urine Automated 0-4 /hpf (0-4); Specific Gravity Urine 1.014 (1.000-1.030); Urobilinogen Urine Negative (Negative)
[2023-06-02 10:55] LABS: Basophils # (auto) 0.03 K/uL (0.00-0.20); Basophils % (auto) 0.4 %; Eosinophils # (auto) 0.07 K/uL (0.00-0.50); Eosinophils % (auto) 0.9 %; Hematocrit (blood only) 49.2 % (42.0-52.0); Hemoglobin 16.6 g/dl (14.0-18.0); Immature Granulocytes # (auto) 0.05 K/uL (0.01-0.20); Immature Granulocytes % (auto) 0.6 %; Lymphocytes # (auto) 2.04 K/uL (1.20-3.40); Mean Corpuscular Hemoglobin 28.8 pg (25.0-34.0); Mean Corpuscular Hgb Conc 33.7 g/dL (32.0-36.0); Mean Corpuscular Volume 85.4 fL (80.0-100.0); Mean Platelet Volume 8.5 fL (9.4-12.4); Monocytes # (auto) 0.49 K/uL (0.11-0.59); Monocytes % (auto) 6.2 %; Neutrophils # (auto) 5.17 K/uL (1.40-6.50); Neutrophils % (auto) 65.9 %; Platelet Count 370 K/uL (130-400); RDW Coefficient of Variation 11.8 % (11.5-14.5); RDW Standard Deviation 36.5 fL (36.4-46.3); Red Blood Count 5.76 M/uL (4.70-6.10); White Blood Count 7.85 K/ul (4.8-10.8)
[2023-06-02 11:07] LABS: Albumin Globulin Ratio 1.6 (0.9-2); Albumin Level 4.7 gm/dl (3.4-5.0); BUN Creatinine Ratio 16.7 (10-20); Bilirubin,Total 0.5 mg/dl (0.2-1.0); Calcium 9.5 mg/dl (8.6-10.3); Creatinine Clr Calc Pharmacy 91.8 ml/min; Est GFR (African American) 131.4 ml/min; Est GFR (Non-African American) 113.4 ml/min; Globulin 2.9 gm/dl (2.5-4.0); Potassium 4.7 mmol/L (3.5-5.1); Total Protein 7.6 gm/dl (6.0-8.3)
[2023-06-02 11:21] LABS: Amphetamines+Metham, Urine Neg (Neg); Barbiturates, Urine Neg (Neg); Benzodiazepine, Urine Neg (Neg); Cocaine, Urine Neg (Neg); MDMA (Ecstacy), Urine Neg (Neg); Marijuana, Urine Pos (Neg); Methadone, Urine Neg (Neg); Opiate, Urine Neg (Neg); Phencyclidine, Urine Neg (Neg)
[2023-06-02 11:22] LABS: Acetaminophen < 3 ug/ml (10-30); Salicylate < 3.0 mg/dl (3.0-30); Thyroid Stimulating Hormone 0.926 uIu/ml (0.300-4.500)
[2023-06-02] MEDS ORDERED: hydrOXYzine HCl 25 MG TAB PO PRN ×2 (12:45)
[2023-06-02] MEDS ORDERED: ALUMINUM/MAGNESIUM SUSP 30 ML UDC PO PRN (12:45)
[2023-06-02] MEDS ORDERED: BISMUTH SUBSALICYLATE LIQD 236 ML PO PRN (12:45)
[2023-06-02] MEDS ORDERED: SODIUM CHLORIDE 0.65% NA SOLN 45 ML (OCEAN) PRN (12:45)
[2023-06-02] MEDS ORDERED: MAGNESIUM HYDROXIDE SUSP 30 ML UDC PO PRN (12:45)
[2023-06-02] MEDS ORDERED: ACETAMINOPHEN 325 MG TAB PO PRN (12:45)
[2023-06-02 13:52] VITALS: TEMP 98.2; O2SAT 99
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
--- NOTE | 2023-06-02 16:06 | History & Physical ---
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 (Fluoxetine Hcl 20 Mg/5 Ml Udp) 20 mg PO QAM ALEXIA Stop: 07/03/23 08:59 Hydroxyzine HCl (Hydroxyzine Hcl 25 Mg Tab) 50 mg PO HSZ PRN PRN Reason: Insomnia Stop: 07/02/23 12:44 Hydroxyzine HCl (Hydroxyzine Hcl 25 Mg Tab) 25 mg PO Q4H PRN PRN Reason: Anxiety Stop: 07/02/23 12:44 Magnesium Hydroxide (Magnesium Hydroxide Susp 30 Ml Udc) 30 ml PO DAILY PRN PRN Reason: Constipation Stop: 07/02/23 12:44 Nicotine Polacrilex (Nicotine Polacrilex 2 Mg Gum) 2 piece MT PRN PRN PRN Reason: Nicotine Withdrawal Symptoms Stop: 07/02/23 11:57 Sodium Chloride (Sodium Chloride 0.65% Na Soln 45 Ml (Luis M. Cintron)) 1 - 2 sprays NA PRN PRN PRN Reason: Nasal Dryness/Congestion Stop: 07/02/23 12:44
[2023-06-02] MEDS: NICOTINE POLACRILEX 2 MG GUM MT PRN (16:53)
[2023-06-03 06:40] VITALS: BP 113/76; RESP 16
[2023-06-03] MEDS: NICOTINE POLACRILEX 2 MG GUM MT PRN (09:04)
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
[2023-06-03 11:05] VITALS: PULSE 56
[2023-06-04] MEDS ORDERED: SERTRALINE HCL 50 MG TABLET PO SCH (09:00)
[2023-06-04 23:18] LABS: Marijuana Quant, GCMS Urine 4253 ng/mL (<5)
== END 2023-06-03 11:51 | disposition home or self-care (01) | DRG 885 ==
LOC: ED 09:48 → SUATTDRO 11:58 → 3S 11:58